=== PATIENT | female | born 1990 | race Caucasian/White ===

== ENCOUNTER 2018-11-11 08:00 | Inpatient (IN) | payer BC ==
[~2018-11-11] VITALS: Ht 167.6 cm; Wt 73.6 kg
[2018-11-11] MEDS ORDERED: LACTATED RINGER'S 1,000 ML IV PRN (09:13)
[2018-11-11 09:20] VITALS: Ht 167.6 cm; Wt 73.6 kg
[2018-11-11] MEDS ORDERED: IBUPROFEN 600 MG TAB PO PRN (09:30)
[2018-11-11] MEDS ORDERED: OXYTOCIN 30 UNITS/LR 500 ML IV PRN (09:30)
[2018-11-11] MEDS ORDERED: MISOPROSTOL 200 MCG TAB PR PRN (09:30)
[2018-11-11] MEDS ORDERED: METHYLERGONOVINE 0.2 MG INJ IM PRN (09:30)
[2018-11-11] MEDS ORDERED: BUTORPHANOL 2 MG INJ IV PRN (09:30)
[2018-11-11] MEDS ORDERED: OXYTOCIN 30 UNITS/LR 500 ML IV SCH ×2 (09:30)
[2018-11-11] MEDS ORDERED: LIDOCAINE 1% (MPF) 30 ML INJ INJ PRN (09:30)
[2018-11-11] MEDS ORDERED: CARBOPROST 250 MCG INJ IM PRN (09:30)
[2018-11-11] MEDS ORDERED: MINERAL OIL LIGHT 10 ML VIAL TOP PRN (09:30)
[2018-11-11] MEDS: LACTATED RINGER'S 1,000 ML IV SCH ×2 (09:42→16:17)
[2018-11-11] MEDS: MISOPROSTOL 50 MCG CAPSULE PO SCH ×2 (12:38→21:47)
--- NOTE | 2018-11-11 16:28 | HP ---
Date/Time of Note Date/Time of Note DATE: 11/11/18 TIME: 16:25 OB - History Hx of Present Free Text/Dictation 28-year-old female 1 para 0 at 40 weeks gestation admitted for elective induction of labor Last Menstrual Period: Feb 04, 2018 Estimated Due Date: Nov 11, 2018 : 1 Para: 0 Care: Good Care Ultrasounds: Normal mid trimester US Obstetrical Complications: None Medical Complications: None Past Family/Social History * Past Medical, Surgical, Family and Obstetric Histories reviewed from chart. Blood Type: O+ Rubella: immune RPR/VDRL: Negative GBS Status: Negative HBsAG: Negative OB Admission Exam Physical Exam HEENT: WNL Heart: Rhythm Normal Lungs: Clear, Equal Abdomen: WNL Extremities: Normal Reflexes: Normal Cervical Dilatation: None Effacement: 0% Station: -3 Membranes: Intact Heart Rate: 140's Accelerations: Accelerations Present Decelerations: No Decelerations Varibility: Marked Contractions on Admission: None Last 72 hours Lab Results CBC & BMP 11/11/18 09:05 OB Assessment/Plan Reason for admission: induction of labor Other Assessment: Term gestation for elective induction of labor Other plan: Start induction of labor using Cytotec CHAZ LONG MD Nov 11, 2018 16:28
[2018-11-12] MEDS: LACTATED RINGER'S 1,000 ML IV SCH ×3 (00:04→16:37)
[2018-11-12] MEDS: MISOPROSTOL 50 MCG CAPSULE PO SCH ×4 (02:20→22:06)
[2018-11-12] MEDS ORDERED: MISOPROSTOL 50 MCG CAPSULE PO SCH (15:30)
--- NOTE | 2018-11-12 16:39 | PN ---
Date/Time of Note Date/Time of Note DATE: 11/12/18 TIME: 16:38 OB Subjective Subjective Subjective Is mild uterine contractions every 3 to 5 minutes OB Objective Objective Objective Vital signs are stable in general physical exam is unchanged Cervix is long and 1 cm OB Assessment/Plan Other Assessment: Intrauterine at 40 weeks and 1 day Currently being induced using Cytotec Other plan: Reevaluate cervical exam after completion of Cytotec CHAZ LONG MD Nov 12, 2018 16:39
[2018-11-12] MEDS ORDERED: PREN-99 PO (19:31)
[2018-11-12] MEDS ORDERED: FER325 PO (19:32)
[2018-11-12] MEDS: OXYTOCIN 30 UNITS/LR 500 ML IV SCH (22:39)
[2018-11-13] MEDS: LACTATED RINGER'S 1,000 ML IV SCH ×4 (00:21→17:15)
[2018-11-13] MEDS ORDERED: FENTAnyl 2MCG/ML-ROPIV 0.2% 100 ML ONE (02:13)
--- NOTE | 2018-11-13 05:59 | PREAC ---
Date/Time of Note Date/Time of Note DATE: 11/13/18 TIME: 05:57 Anesthesia Eval and Record Evaluation Time Pre-Procedure Interview DATE: 11/13/18 TIME: 01:51 Age 28 Sex female NPO: 8 hrs Preoperative diagnosis iup @ 40 wks., , labor Planned procedure naman Past Medical History Past Medical History: Includes : : (1), Para: (0), Gestational age: (40 wks.) Surgery & Anesthesia Issues No known issue Meds Anticoagulation: No Beta Nikki within 24 hr: No Reason Beta Nikki not given: Pt. not on B-Nikki Reported Medications Ferrous Sulfate* (Ferrous Sulfate*) 325 Mg Tabec, 325 MG PO DAILY, TAB 11/12/18 Vit #76/Iron,Carb/FA (Pnv 29-1 Tablet) 1 Each Tablet, 1 EACH PO, TAB 11/12/18 Current Medications Lactated Ringer's 1,000 ml @ 125 mls/hr Q8H IV Last administered on 11/13/18at 02:11; Admin Dose 125 MLS/HR; Start 11/11/18 at 09:13 Butorphanol Tartrate (Stadol) 2 mg Q2H PRN IV .PAIN SCALE 6-10 Last administered on 11/12/18at 22:38; Admin Dose 2 MG; Start 11/11/18 at 09:30 Lidocaine (Xylocaine 1% (Mpf)) 30 ml ONCE PRN INJ .EPISIOTOMY; Start 11/11/18 at 09:30 Oxytocin/Lactated Ringer's 500 ml @ 500 mls/hr ONCE POST IV ; Start 11/11/18 at 09:30 Oxytocin/Lactated Ringer's 500 ml @ 125 mls/hr POST IV ; Start 11/11/18 at 09:30 Ibuprofen (Motrin) 600 mg ONCE PRN PO .PAIN 1-5; Start 11/11/18 at 09:30 Lactated Ringer's 1,000 ml @ 2,000 mls/hr Q30M PRN IV .ANESTHESIA; Start 11/11/18 at 09:13 Oxytocin/Lactated Ringer's 500 ml @ 0 mls/hr ONCE PRN IV .VAGINAL BLEEDING; Start 11/11/18 at 09:30 Methylergonovine Maleate (Methergine) 0.2 mg ONCE PRN IM .VAGINAL BLEEDING; Start 11/11/18 at 09:30 Carboprost Tromethamine (Hemabate) 250 mcg ONCE PRN IM .VAGINAL BLEEDING; Start 11/11/18 at 09:30 Misoprostol (Cytotec) 1,000 mcg ONCE PRN FL .VAGINAL BLEEDING; Start 11/11/18 at 09:30 Mineral Oil (Muri-Lube) 10 ml PRN PRN TOP NOTE; Start 11/11/18 at 09:30 Oxytocin/Lactated Ringer's 500 ml @ 0 mls/hr FOR AUGMENTATION IV Last administered on 11/12/18at 22:39; Admin Dose 1 MLS/HR; Start 11/12/18 at 22:00 Meds reviewed: Yes Allergies Coded Allergies: No Known Allergy (Unverified , 11/11/18) Allergies Reviewed: Yes Labs/Studies Labs Reviewed: Reviewed by anesthesiologist Result Diagram: 11/11/18904 test: Positive Studies: ECG (n/a), CXR (n/a) Pre-procedure Exam Airway: Adequate mouth opening, Adequate thyromental dist Mallampati: Mallampati II Teeth: Normal Lung: Normal Heart: Normal ASA Physical Status ASA physical status: 2 Emergency: E Planned Anesthetic Neuraxial: Epidural Planned Pain Management Epidural, Parenteral pain med, Local by surgeon Pre-operative Attestations Prior to commencing anesthesia and surgery, the patient was re-evaluated, there was verification of: *The patient's identity *The results of appropriate recent lab work and preoperative vital signs *The above evaluation not changing prior to induction *Anesthetic plan, risk benefits, alternative and complications discussed with patient/family; questions answered; patient/family understands, accepts and wish es to proceed. Airway Controller used MALIA BILLINGSLEY MD Nov 13, 2018 05:59
[2018-11-13] MEDS ORDERED: ONDANSETRON 4 MG INJ IV PRN (06:00)
[2018-11-13] MEDS ORDERED: NALBUPHINE HCL (10 MG/1 ML) INJ IV PRN (06:00)
[2018-11-13] MEDS ORDERED: NALOXONE (0.4 MG/ML) INJ IV PRN (06:00)
[2018-11-13] MEDS ORDERED: AMPICILLIN 2 GM/NS (PMX) 100 ML IVPB ONE (08:00)
--- NOTE | 2018-11-13 08:54 | PN ---
Date/Time of Note Date/Time of Note DATE: 11/13/18 TIME: 08:52 OB Subjective Subjective Subjective Currently has epidural and feels comfortable OB Objective Objective Objective Vital signs are stable as well as general physical exam Cervix is completely effaced and 5 to 6 cm dilated with presenting part vertex at -1 station Membranes were spontaneously ruptured has irregular contractions every 4 or 3 minutes OB Assessment/Plan Reason for admission: induction of labor Other Assessment: Term gestation For induction of labor Other plan: Will continue Pitocin augmentation of the labor Started on IV antibiotics 12-hour after ruptured membranes CHAZ LONG MD Nov 13, 2018 08:54
[2018-11-13] MEDS: FENTAnyl 2MCG/ML-ROPIV 0.2% 100 ML BAG EPI SCH ×2 (09:33→15:16)
[2018-11-13] MEDS: AMPICILLIN 1 GM/NS (PMX) 50 ML IVPB SCH ×2 (15:16→19:04)
[2018-11-13] MEDS: OXYTOCIN 30 UNITS/LR 500 ML IV SCH (18:53)
[2018-11-13] MEDS ORDERED: KETOROLAC 30 MG INJ IV STA (22:33)
[2018-11-13] MEDS ORDERED: ACETAMINOPHEN 500 MG TAB PO STA (22:33)
--- NOTE | 2018-11-13 22:33 | LDN ---
Date/Time of Note Date/Time of Note DATE: 11/13/18 TIME: 22:31 Delivery Summary Vacuum extraction of a viable infant over midline episiotomy Weeks of Gestation 30 weeks and 3 days Assisted Vaginal Delivery: Vacuum (Vacuum extraction was performed because of variable deceleration of heart tones) Placenta Delivered: Spontaneously, Intact & Complete Meconium: Thick Episiotomy: Yes Indication for episiotomy Variable deceleration of heart tones and vacuum extraction Laceration repair: Midline episiotomy was repaired in layers using running stitches of 2-0 Vicryl in deeper layers and running stitches of 2-0 chromic and superficial layer Anesthesia type: Local Estimated blood loss: 800 ( hemorrhage was controlled using IV Pitocin infusion Hemabate rectal Cytotec) Sponge & Needle done & correct: Yes All needle counts correct: Yes Any foreign bodies felt in the: No Delivery Information Sex Infant Sex: male Apgars 1 Minute: 9 5 Minute: 9 Suctioning Nose & mouth suctioned at darrius: Yes Delee suction performed: No Umbilical Cord Umbilical cord with: 3 Vessels Cord presentations: no nuchal cord Nuchal cord present X: 1 Cord Blood was obtained: Yes Mother & Baby Disposition Disposition Mom & Baby to Maternity; Good: Yes (Mother and baby were recovered in good c ondition) Mom transferred to: Other (Maternity floor) Baby to NICU: No CHAZ LONG MD Nov 13, 2018 22:33
[2018-11-14] VITALS (7 sets, daily range): BP systolic 106–121; BP diastolic 55–78; PULSE 82–99; RESP 16–19
[2018-11-14] MEDS ORDERED: ZOLPIDEM 5 MG TAB PO PRN (00:30)
[2018-11-14] MEDS ORDERED: HYDROCODONE/APAP (5/325) TAB PO PRN ×2 (00:30)
[2018-11-14] MEDS ORDERED: MISOPROSTOL 200 MCG TAB PR PRN (00:30)
[2018-11-14] MEDS: CEPHALEXIN 500 MG CAP PO SCH ×5 (00:30→23:50)
[2018-11-14] MEDS ORDERED: DIBUCAINE 1% 30 GM OINT TOP PRN (00:30)
[2018-11-14] MEDS ORDERED: BENZOCAINE 20% 56 ML SPRAY TOP PRN (00:30)
[2018-11-14] MEDS ORDERED: OXYTOCIN 30 UNITS/LR 500 ML IV PRN (00:30)
[2018-11-14] MEDS ORDERED: CARBOPROST 250 MCG INJ IM PRN (00:30)
[2018-11-14] MEDS ORDERED: LANOLIN HPA 1 PKT TOP PRN (00:30)
[2018-11-14] MEDS ORDERED: METHYLERGONOVINE 0.2 MG INJ IM PRN (00:30)
[2018-11-14] MEDS ORDERED: WITCH HAZEL/GLYCERIN PAD PR PRN (00:30)
[2018-11-14] MEDS: LACTATED RINGER'S 1,000 ML IV* SCH ×2 (03:38→11:33)
[2018-11-14] MEDS: IBUPROFEN 600 MG TAB PO SCH ×4 (05:38→23:50)
[2018-11-14] MEDS: MAGNESIUM HYDROXIDE 30ML CUP PO SCH ×2 (08:50→21:00)
[2018-11-14] MEDS: SENNA/DOCUSATE NA (8.6MG/50MG) TAB PO SCH ×2 (08:50→21:00)
--- NOTE | 2018-11-14 16:51 | DS ---
Date/Time of Note Date/Time of Note Home today or next day DATE: 11/14/18 TIME: 16:49 Obstetrical Discharge Record Final Diagnosis Final Diagnosis: Term delivered Other Final Diagnosis Status post vaginal delivery Vaginal Delivery Obstetrical Delivery: Spontaneous, Episiotomy, Repaired Complications Augmentation: Yes Induction: Yes Condition on Discharge Physical Assessment Last Vitals: See nurse's notes Voiding: Yes Bowel Movement: Yes Breast: Soft, non-tender, Filling Fundus: Firm Abdomen and Incision: Abdomen is soft firm fundus Episiotomy: Episiotomy is healing well and perineum appears clean Calf Tenderness: No Patient Condition: Good CHAZ LONG MD Nov 14, 2018 16:50
--- NOTE | 2018-11-14 18:44 | PD.PPDC ---
SUPERVISOR RECLAMATION Discharge Instruction Provider Information Physician Information 28-year-old female had vaginal delivery Diagnosis [id number] Final Diagnosis: Puicw5r Status post vaginal delivery Condition [id number] Patient Condition: [id number] Good Diet [id number] Diet: Eyzjx8a Resume Regular Diet Activity/Restrictions [id number] Activity: Kgzqx0d Normal Activity May Shower [id number] Restrictions: [id number] Nothing in the Vagina [id number] Return to Work or School: [id number] Jan 02, 2019 Follow-up Follow-up with Physician: 2, 4, Week/Weeks (In clinic) Return to clinic for [id number] OB Instructions: Kqhfw1h Breast Tenderness Depression Comment: Pelvic rest for 6 weeks CHAZ LONG MD Nov 14, 2018 18:44
[2018-11-14] MEDS ORDERED: CEPH500C PO (18:45)
[2018-11-14] MEDS ORDERED: IBUP-1542 PO (18:46)
[2018-11-15 04:00] VITALS: BP 105/54; PULSE 68; RESP 18
[2018-11-15] MEDS: CEPHALEXIN 500 MG CAP PO SCH ×2 (06:12→13:02)
[2018-11-15] MEDS: IBUPROFEN 600 MG TAB PO SCH ×2 (06:12→13:02)
[2018-11-15 09:00] VITALS: BP 107/53; PULSE 72; RESP 18
[2018-11-15] MEDS: MAGNESIUM HYDROXIDE 30ML CUP PO SCH (09:00)
[2018-11-15] MEDS ORDERED: VARICELLA VACCINE LIVE/PF 1,350 UNIT/0.5 ML ML SC* ONE (09:00)
[2018-11-15] MEDS ORDERED: DIPHTH/TET/ACEL PERTUSS (ADULT) 0.5 ML VIAL IM* ONE (09:00)
[2018-11-15] MEDS ORDERED: MEASLES,MUMPS,RUBELLA VACCINE INJ SC* ONE (09:00)
[2018-11-15] MEDS: SENNA/DOCUSATE NA (8.6MG/50MG) TAB PO SCH (09:00)
--- NOTE | 2018-11-15 23:51 | PAC ---
Date/Time of Note Date/Time of Note DATE: 11/14/18 TIME: 00:30 Post-Anesthesia Notes Post-Anesthesia Note Last documented vital signs Vital Signs Date Temp Pulse Resp B/P (MAP) Pulse Ox O2 O2 Flow FiO2 Time Delivery Rate 11/15/18 97.6 72 18 107/53 Room Air 09:00 (71) Activity: WNL Respiratory function: WNL Cardiovascular function: WNL Mental status: Baseline Pain reasonably controlled: Yes Hydration appropriate: Yes Nausea/Vomiting absent: Yes MALIA BILLINGSLEY MD Nov 15, 2018 23:51
--- NOTE | 2018-11-16 17:50 | DELSUM ---
Delivery Summary A-C Datetime Report Generated by CPN: 11/16/2018 17:50 DELIVERY PERSONNEL Bone Drier: Hyman, Sybil MATERNAL INFORMATION Delivery Anesthesia: Epidural Medications in Delivery: LR WITH 30 UNITS PITOCIN Delivery QBL (ml): 800 Placenta Cultured: No Maternal Complications: None LABOR SUMMARY EDC: 11/11/2018 00:00 No. Babies in Womb: 1 Attempted: No Labor Anesthesia: Epidural LABOR INFORMATION Reason for Induction: Postterm Complete Dilatation: 11/13/2018 21:45 Cervical Ripening Agents: Cytotec @ 1544 Group B Beta Strep: Negative Antibiotics # of Doses: Ampicillin x2 Antibiotics Time of Last Dose: 11/13/2018 15:16 Steroids Given: None Reason Steroids Not Administered: Not Applicable MEMBRANES Membranes Rupture Method: Spontaneous Rupture of Membranes: 11/12/2018 20:24 Length of Rupture (hr): 25.63 Amniotic Fluid Color: Clear Amniotic Fluid Amount: Moderate Amniotic Fluid Odor: Normal STAGES OF LABOR Stage 2 hr: 0 Stage 2 min: 17 Stage 3 hr: 0 Stage 3 min: -47 VAGINAL DELIVERY Episiotomy: Median Laceration Repair: Yes Initial Vag Sponge Count: 10 Final Vag Sponge Count: 10 Initial Vag Sharps Count: 1 Final Vag Sharps Count: 3 Sponge Count Correct: Yes; Vaginal Sweep Performed Sharps Count Correct: Yes BABY A INFORMATION Delivery Date/Time: 11/13/2018 22:02 Method of Delivery: Vaginal Born in Route : No : N/A Forceps: N/A Vacuum Extraction: Successful Shoulder Dystocia : N/A SHOULDER DYSTOCIA BABY A Delivery Date/Time: 11/13/2018 22:02 PRESENTATION/POSITION BABY A Presentation: Cephalic Cephalic Presentation: Vertex Vertex Position: Left Occipital Anterior Breech Presentation: N/A PLACENTA INFORMATION BABY A Placenta Delivery Time : 11/13/2018 21:15 Placenta Method of Delivery: Spontaneous Placenta Status: Delivered SCORES BABY A Heart Rate 1 min: >100 bpm Resp Effort 1 min: Good Cry Reflex Irritability 1 min: Cough/Sneeze/Pulls Away Muscle Tone 1 min: Active Motion Color 1 min: Body [place], Extremit Blue Resuscitation Effort 1 min: Tactile Stimulation SCORE 1 MIN: 9 Heart Rate 5 min: >100 bpm Resp Effort 5 min: Good Cry Reflex Irritability 5 min: Cough/Sneeze/Pulls Away Muscle Tone 5 min: Active Motion Color 5 min: Body [place], Extremit Blue Resuscitation Effort 5 min: Tactile Stimulation SCORE 5 MIN: 9 INFORMATION BABY A Gestational Age at Delivery: 40.2 Gestational Status: Full Term- 39- 40.6 Weeks Infant Outcome : Liveborn, with signs of life Infant Condition : Stable Infant Sex: Male IDENTIFICATION/MEDS BABY A ID Band Number: [id number] ID Band Location: Right Leg; Left Arm Sensor Number: [id number] Sensor Location : Cord Clamp Vitamin K Given : Not Given Erythromycin Given: Not Given WEIGHT/LENGTH BABY A Birthweight (gm): 3650 Infant Weight (lb): 8 Infant Weight (oz): 1 Length (in): 20.50 Infant Length (cm): 52.07 CORD INFORMATION BABY A No. Cord Vessels: 3 Nuchal Cord : Around Neck x1, Loose Cord Blood Taken: Yes Suction: Mouth; Nose ASSESSMENT BABY A Infant Complications: Multiple Variable Decels Physical Findings at Delivery: Within Normal Limits Infant Respirations: Appears Normal Group Therapy Counselor/ALS Called : Yes Infant Care By: rt/alex rn Transferred To: Remains with Mother
== END 2018-11-15 17:49 | disposition home or self-care (01) | DRG 807 ==
LOC: L-D 08:12 → PP1 11-14 00:01
PROVIDERS: ADMIT Obstetrics & Gynecology; ATTEND Obstetrics & Gynecology
PROC: 10D07Z6 Extraction of Products of Conception, Vacuum, Via Natural or Artificial Opening (ICD-10-PCS; principal; 2018-11-13)
PROC: 0W8NXZZ Division of Female Perineum, External Approach (ICD-10-PCS; 2018-11-13)
DX: O48.0 Post-term pregnancy (principal); O66.5 Attempted application of vacuum extractor and forceps; O76 Abnormality in fetal heart rate and rhythm complicating labor and delivery; Z37.0 Single live birth; Z3A.40 40 weeks gestation of pregnancy
CPT/HCPCS: 62322; 76815; 85025; 85610; 85730; 86592; 86900; 86901; 87340; 90716; 99464; J0290; J0595; J2590; J3010; J7120